=== PATIENT | male | born 1975 | race Caucasian/White ===

== ENCOUNTER 2018-08-31 20:30 | Observation (INO) | payer OTHER ==
[2018-08-31] MEDS ORDERED: Glucagon Recombinant 1 mg Inj IV ONE (21:09)
[2018-08-31] MEDS ORDERED: Sodium Chloride 0.9% 1,000 ML IV STA (21:09)
[2018-08-31 22:05] LABS: BASO # 0.1 K/uL (0.0-0.2); BASO % 0.8 % (0.0-2.0); EOS # 0.9 K/uL (0.0-0.7); EOS % 11.7 % (0.0-4.0); LYMPH % 39.5 % (20.0-40.0); MEAN CORPUSCULAR HEMOGLOBIN 31.3 pg (27.0-31.0); MEAN CORPUSCULAR HGB CONC 34.8 g/dL (33.0-37.0); MEAN PLATELET VOLUME 8.1 fl (7.2-11.7); MONO # 0.7 K/uL (0.0-0.8); MONO % 8.9 % (0.0-10.0); NEUT # 2.9 K/uL (1.8-7.0); NEUT % 39.1 % (50.0-75.0); NRBC % 0.4 % (0.0-0.0); RBC 5.1 Mil/uL (4.40-5.90); RED CELL DISTRIBUTION WIDTH 12.8 % (11.5-14.5); WHITE BLOOD COUNT 7.5 K/uL (4.8-10.8)
[2018-08-31 22:13] LABS: PROTHROMBIN TIME 11.1 Seconds (9.8-13.1)
[2018-08-31 22:16] LABS: PARTIAL THROMBOPLASTIN TIME 31.7 Seconds (25.6-37.1)
[2018-08-31 22:19] LABS: BLOOD UREA NITROGEN 25 mg/dl (9-20); CALCIUM 9.6 mg/dL (8.4-10.2); GFR NON-AFRICAN AMERICAN > 60
--- NOTE | 2018-08-31 22:22 | ED PDOC ---
HPI: General Adult Time Seen by Provider: 08/31/18 21:02 Chief Complaint (Nursing): Foreign Body Chief Complaint (Provider): Meat Impaction in Throat History Per: Patient History/Exam Limitations: no limitations Onset/Duration Of Symptoms: Hrs (around 1829) Current Symptoms Are (Timing): Still Present Additional Complaint(s): 43 year old male with history of previous meat impactions presents to the ED for evaluation of feeling a piece of improperly chewed pork chop stuck in his throat which happened around 1829. Additionally notes he has been vomiting all intake since onset and is unable to swallow his saliva, but can breath normally. Otherwise, denies chest pain. PMD: none provided Past Medical History Reviewed: Historical Data, Nursing Documentation, Vital Signs Vital Signs: Last Vital Signs Temp 98 F 08/31/18 20:59 Pulse 89 08/31/18 20:59 Resp 16 08/31/18 20:59 BP 129/88 08/31/18 20:59 Pulse Ox 99 08/31/18 20:59 Primary Care Provider: FAMILY PROVIDER,NO - Medical History Other PMH: hx of previous meat impactions in throat - Surgical History Surgical History: No Surg Hx - Family History Family History: States: Unknown Family Hx - Social History Current smoker - smoking cessation education provided: No - Home Medications Home Medications: Ambulatory Orders Medication Instructions Recorded No Known Home Med 08/31/18 - Allergies Allergies/Adverse Reactions: Allergies Allergy/AdvReac Type Severity Reaction Status Date / Time No Known Allergies Allergy Verified 08/31/18 21:00 Review of Systems ROS Statement: Except As Marked, All Systems Reviewed And Found Negative ENT: Positive for: Other (piece of meat stuck in throat, unable to swallow saliva) Cardiovascular: Negative for: Chest Pain Gastrointestinal: Positive for: Vomiting Physical Exam - Reviewed Nursing Documentation Reviewed: Yes Vital Signs Reviewed: Yes - Physical Exam Appears: Positive for: No Acute Distress Head Exam: Positive for: ATRAUMATIC, NORMOCEPHALIC Skin: Positive for: Normal Color, Warm Eye Exam: Positive for: Normal appearance ENT: Positive for: Other (patient actively vomiting up spit) Neck: Positive for: Normal, Painless ROM, Supple Cardiovascular/Chest: Positive for: Regular Rate, Rhythm Respiratory: Positive for: Normal Breath Sounds. Negative for: Accessory Muscle Use, Stridor, Wheezing, Respiratory Distress Gastrointestinal/Abdominal: Positive for: Normal Exam, Soft. Negative for: Tenderness Extremity: Positive for: Normal ROM Neurological/Psych: Positive for: Awake, Alert, Oriented (x3). Negative for: Motor/Sensory Deficits - Laboratory Results Result Diagrams: 08/31/18 21:20 08/31/18 21:20 Lab Results: PT 11.1 Seconds (9.8-13.1) 08/31/18 21: INR 1.0 08/31/18 21:20 APTT 31.7 Seconds (25.6-37.1) 08/31/18 21:20 - ECG O2 Sat by Pulse Oximetry: 99 (RA) Pulse Ox Interpretation: Normal Medical Decision Making Medical Decision Making: A/P: 43 year old male with an impacted meat bolus --attempted glucagon without success --Dr. Klein aware of case, will wait for his recommendations 2119 Initial Plan: --Type and screen --BMP --CBC with differential --PT / PTT --NS IV fluids --Reevaluation 2199 --Glucagon failed to clear food impaction --Dr. Klein to take patient for urgent endoscopy to remove impacted material --Terrance of Dr. Sosa's service aware Scribe Attestation: Documented by Gala Kelly, acting as a scribe for Kwesi Tatum MD. Provider Scribe Attestation: All medical record entries made by the Scribe were at my direction and personally dictated by me. I have reviewed the chart and agree that the record accurately reflects my personal performance of the history, physical exam, medical decision making, and the department course for this patient. I have also personally directed, reviewed, and agree with the discharge instructions and disposition. Disposition - Clinical Impression Clinical Impression: Impacted esophageal foreign body - Patient ED Disposition Is Patient to be Admitted: Yes Discussed With : Scott Klein Doctor Will See Patient In The: Hospital Counseled Patient/Family Regarding: Studies Performed, Diagnosis - Disposition Disposition Time: 22:00 Condition: GUARDED
[2018-08-31] MEDS ORDERED: Midazolam 2 MG/2 ML VIAL ONE (23:31)
[2018-08-31] MEDS ORDERED: Propofol 10 mg/ml Inj (20 ML) ONE (23:31)
[2018-08-31] MEDS ORDERED: Lactated Ringer's 500 ML IV ONE (23:40)
[2018-09-01] MEDS: Sodium Chloride 0.9% 1,000 ML IV SCH ×2 (02:06→02:08)
[2018-09-01 05:28] VITALS: O2SAT 100
[2018-09-01 07:03] LABS: BASO % 0.3 % (0.0-2.0); EOS # 0.6 K/uL (0.0-0.7); EOS % 5.4 % (0.0-4.0); HEMOGLOBIN 15.1 g/dL (12.0-18.0); LYMPH # 1.5 K/uL (1.0-4.3); MEAN CELL VOLUME 89.9 fl (80.0-94.0); MEAN CORPUSCULAR HEMOGLOBIN 30.8 pg (27.0-31.0); MEAN CORPUSCULAR HGB CONC 34.3 g/dL (33.0-37.0); MEAN PLATELET VOLUME 8.1 fl (7.2-11.7); MONO % 8.5 % (0.0-10.0); NEUT # 8.5 K/uL (1.8-7.0); NEUT % 72.8 % (50.0-75.0); NRBC % 0.1 % (0.0-0.0); RBC 4.9 Mil/uL (4.40-5.90); RED CELL DISTRIBUTION WIDTH 12.3 % (11.5-14.5); WHITE BLOOD COUNT 11.7 K/uL (4.8-10.8)
[2018-09-01 07:12] LABS: ALB/GLOB RATIO 1.6 (1.0-2.1); ALBUMIN 4.1 g/dL (3.5-5.0); ALT/SGPT 35 U/L (21-72); AST/SGOT 26 U/L (17-59); BLOOD UREA NITROGEN 22 mg/dl (9-20); CALCIUM 8.8 mg/dL (8.4-10.2); GFR NON-AFRICAN AMERICAN > 60
--- NOTE | 2018-09-01 07:18 | CON ---
DATE: 08/31/2018 REFERRING PHYSICIAN: Juwan Sosa MD. REASON FOR CONSULTATION: Food impaction. HISTORY OF PRESENT ILLNESS: This is a 43-year-old male with past medical history who has had multiple food impactions in the past before up three or four hours ago and can not even tolerate saliva. The patient is lying in bed comfortable, no apparent distress. PAST MEDICAL HISTORY: As above. PAST SURGICAL HISTORY: As above. MEDICATIONS: Reviewed. REVIEW OF SYSTEMS: All other systems have been reviewed and negative apart from the HPI. PHYSICAL EXAMINATION: VITAL SIGNS: Here in the hospital are grossly unremarkable. GENERAL: This is a pleasant middle-aged male, lying in bed comfortably, in no apparent distress. HEENT: Head; normocephalic and atraumatic. Eyes; pupils are equal and reactive to light bilaterally. No conjunctival pallor or icterus. NECK: Supple. Normal range of motion. No lymphadenopathy appreciated. LUNGS: Coarse breath sounds bilaterally. HEART: S1 and S2. Regular rate and rhythm. No murmurs appreciated. ABDOMEN: Soft and nontender. Bowel sounds are present. No rebound. No guarding. RECTAL: Deferred. EXTREMITIES: Pulses felt bilaterally. SKIN: Warm, dry, and intact. NEUROLOGIC: A and O x3. LABORATORY DATA: Labs and radiology have been reviewed. Labs are essentially unremarkable. ASSESSMENT AND PLAN: This is a 43-year-old male with food impaction. Plan is for urgent endoscopy. Thank you for the consult. Scott Klein MD/ PhD cc: Juwan Sosa MD
[2018-09-01 07:56] VITALS: BP 110/74; PULSE 93; RESP 20; TEMP 98
--- NOTE | 2018-09-01 14:24 | RAD ---
Date of service: 09/01/2018 HISTORY: md order COMPARISON: No prior. TECHNIQUE: Chest PA and lateral views FINDINGS: LUNGS: No active pulmonary disease. PLEURA: No significant pleural effusion identified. No pneumothorax apparent. CARDIOVASCULAR: No aortic atherosclerotic calcification present. Normal cardiac size. No pulmonary vascular congestion. OSSEOUS STRUCTURES: No significant abnormalities. VISUALIZED UPPER ABDOMEN: Normal. OTHER FINDINGS: None. IMPRESSION: No active disease.
[2018-09-01] MEDS: Pantoprazole 40 mg EC Tab PO SCH ×2 (14:55→15:02)
--- NOTE | 2018-09-01 15:25 | CP.PCM.HP ---
History of Present Illness - History of Present Illness History of Present Illness: 43 year old male with history of previous meat impactions presented to ED with another meat impacted food bolus. Patient was unable to swallow saliva. GI was called and urgent endoscopy was completed. patient seen and examined this am at bedside. No complaints offered at this time. Feels well now. Unknown reason of why this continues to happen. Patient states in the past has been evaluated by GI. No other complaints offered at this time. denies chest pain, abdominal pain, sob, palpitations, fever, chills, headaches. Allergies: as per chart Meds: as per chart Fam hx: non contributory Present on Admission - Present on Admission Any Indicators Present on Admission: No Review of Systems - Review of Systems All systems: reviewed and no additional remarkable complaints except (mentioned above) Past Patient History - Past Medical History & Family History Past Medical History?: Yes - Past Social History Smoking Status: Former Smoker - CARDIAC Hx Cardiac Disorders: No - PULMONARY Hx Respiratory Disorders: No - NEUROLOGICAL Hx Neurological Disorder: No - HEENT Hx HEENT Problems: No - RENAL Hx Chronic Kidney Disease: No - ENDOCRINE/METABOLIC Hx Endocrine Disorders: No - HEMATOLOGICAL/ONCOLOGICAL Hx Blood Disorders: No - INTEGUMENTARY Hx Dermatological Problems: No - MUSCULOSKELETAL/RHEUMATOLOGICAL Hx Musculoskeletal Disorders: No Hx Falls: No - GASTROINTESTINAL Hx Gastrointestinal Disorders: Yes Other/Comment: Meat impaction in throat - GENITOURINARY/GYNECOLOGICAL Hx Genitourinary Disorders: No - PSYCHIATRIC Hx Psychophysiologic Disorder: No Hx Substance Use: No - SURGICAL HISTORY Hx Surgeries: No - ANESTHESIA Hx Anesthesia: No Hx Anesthesia Reactions: No Meds Home Medications: Home Medication List Medication Instructions Recorded Confirmed Type Pantoprazole [Protonix EC Tab] 40 mg PO BID #60 ect 09/01/18 Rx Allergies/Adverse Reactions: Allergies Allergy/AdvReac Type Severity Reaction Status Date / Time No Known Allergies Allergy Verified 08/31/18 21:00 Physical Exam - Constitutional Appears: Well, No Acute Distress - Head Exam Head Exam: NORMAL INSPECTION - Eye Exam Eye Exam: Normal appearance - Respiratory Exam Respiratory Exam: NORMAL BREATHING PATTERN - Cardiovascular Exam Cardiovascular Exam: +S1, +S2 - GI/Abdominal Exam GI & Abdominal Exam: Normal Bowel Sounds, Soft - Neurological Exam Neurological exam: Alert, Oriented x3 - Psychiatric Exam Psychiatric exam: Normal Affect, Normal Mood - Skin Skin Exam: Normal Color, Warm Results - Vital Signs Recent Vital Signs: Last Vital Signs Temp 98.0 F 09/01/18 07:55 Pulse 93 H 09/01/18 07:55 Resp 20 09/01/18 07:55 BP 110/74 09/01/18 07:55 Pulse Ox 100 09/01/18 07:55 - Labs Result Diagrams: 09/01/18 05:35 09/01/18 05:35 Labs: Laboratory Results - last 24 hr 08/31/18 08/31/18 08/31/18 21:20 21:20 21:20 WBC 7.5 RBC 5.10 Hgb 16.0 Hct 45.9 MCV 90.0 MCH 31.3 H MCHC 34.8 RDW 12.8 Plt Count 234 MPV 8.1 Neut % (Auto) 39.1 L Lymph % (Auto) 39.5 [place] % (Auto) 8.9 Eos % (Auto) 11.7 H Baso % (Auto) 0.8 Neut # (Auto) 2.9 Lymph # (Auto) 3.0 [place] # (Auto) 0.7 Eos # (Auto) 0.9 H Baso # (Auto) 0.1 PT 11.1 INR 1.0 APTT 31.7 Sodium 139 Potassium 4.1 Chloride 100 Carbon Dioxide 28 Anion Gap 15 BUN 25 H Creatinine 1.1 Est GFR ( Amer) > 60 Est GFR (Non-Af Amer) > 60 Random Glucose 95 Calcium 9.6 Total Bilirubin AST ALT Alkaline Phosphatase Total Protein Albumin Globulin Albumin/Globulin Ratio Blood Type Blood Type Confirm Antibody Screen BBK History Checked 08/31/18 08/31/18 09/01/18 22:08 22:59 05:35 WBC 11.7 H D RBC 4.90 Hgb 15.1 Hct 44.0 MCV 89.9 MCH 30.8 MCHC 34.3 RDW 12.3 Plt Count 237 MPV 8.1 Neut % (Auto) 72.8 Lymph % (Auto) 13.0 L [place] % (Auto) 8.5 Eos % (Auto) 5.4 H Baso % (Auto) 0.3 Neut # (Auto) 8.5 H Lymph # (Auto) 1.5 [place] # (Auto) 1.0 H Eos # (Auto) 0.6 Baso # (Auto) 0.0 PT INR APTT Sodium Potassium Chloride Carbon Dioxide Anion Gap BUN Creatinine Est GFR ( Amer) Est GFR (Non-Af Amer) Random Glucose Calcium Total Bilirubin AST ALT Alkaline Phosphatase Total Protein Albumin Globulin Albumin/Globulin Ratio Blood Type A NEGATIVE Blood Type Confirm A NEGATIVE Antibody Screen Negative BBK History Checked No verified bt 09/01/18 05:35 WBC RBC Hgb Hct MCV MCH MCHC RDW Plt Count MPV Neut % (Auto) Lymph % (Auto) [place] % (Auto) Eos % (Auto) Baso % (Auto) Neut # (Auto) Lymph # (Auto) [place] # (Auto) Eos # (Auto) Baso # (Auto) PT INR APTT Sodium 140 Potassium 4.3 Chloride 103 Carbon Dioxide 29 Anion Gap 12 BUN 22 H Creatinine 1.2 Est GFR ( Amer) > 60 Est GFR (Non-Af Amer) > 60 Random Glucose 95 Calcium 8.8 Total Bilirubin 0.7 AST 26 ALT 35 Alkaline Phosphatase 35 L Total Protein 6.7 Albumin 4.1 Globulin 2.6 Albumin/Globulin Ratio 1.6 Blood Type Blood Type Confirm Antibody Screen BBK History Checked Assessment & Plan (1) Impacted esophageal foreign body Status: Acute - Assessment and Plan (Free Text) Plan: available diagnostic data reviewed monitor labs monitor vitals EGD completed further recommendations as per GI rest of plan as ordered
== END 2018-09-01 15:59 | disposition home or self-care (01) ==
LOC: H.ER 20:30 → INTOOBSV 22:02 → H.ERHOLD 22:02 → H.MEDSURG1 09-01 01:46
PROVIDERS: ADMIT Family Medicine; ATTEND Family Medicine
DX: T18.128A Food in esophagus causing other injury, initial encounter (principal); T18.2XXA Foreign body in stomach, initial encounter; X58.XXXA Exposure to other specified factors, initial encounter; Y92.9 Unspecified place or not applicable; Z87.891 Personal history of nicotine dependence
CPT/HCPCS: 36415; 43239; 43247; 71046; 80048; 80053; 85025; 85610; 85730; 86850; 86900; 88304; 88307; 96360; 99283; G0378; J1610; J2001; J2250; J2704; J3010; J7030; J7120